=== PATIENT | female | born 1980 | race African-American/Black ===

== ENCOUNTER 2016-10-08 12:40 | Outpatient (CLI) ==
[2016-10-08 13:03] LABS: BASOPHILS % (AUTO) 0.4 % (0.0-3.0); EOSINOPHILS # (AUTO) 0.1 K/ul (0.0-0.7); EOSINOPHILS % (AUTO) 1.6 % (0.0-7.0); HEMATOCRIT 35.4 % (37.0-47.0); HEMOGLOBIN 11.5 g/dl (12.0-16.0); IMMATURE GRANULOCYTE % (AUTO) 0.4 % (0.0-5.0); LYMPHOCYTES # (AUTO) 2.4 K/uL (0.60-3.4); LYMPHOCYTES % (AUTO) 32.7 (10.0-50.0); MEAN CORPUSCULAR HEMOGLOBIN 27.1 pg (27.0-31.0); MEAN CORPUSCULAR HGB CONC 32.5 (31.8-35.4); MEAN CORPUSCULAR VOLUME 83.5 fl (81.0-99.0); MONOCYTES # (AUTO) 0.6 K/uL (0.4-2.0); MONOCYTES % (AUTO) 7.6 (0-10); NEUTROPHILS # (AUTO) 4.2 K/ul (2.0-6.9); NEUTROPHILS % (AUTO) 57.3; PLATELET COUNT 238 10^3/uL (140-440); RED BLOOD COUNT 4.24 10^6/ul (4.20-5.40); WHITE BLOOD COUNT 7.33 K/ul (4.6-10.2)
[2016-10-08 13:54] LABS: ALBUMIN 3.5 g/dL (3.4-5.0); ALBUMIN/GLOBULIN RATIO 0.83; ANION GAP 12.9; BILIRUBIN,DIRECT 0.1 mg/dL (0.00-0.30); BILIRUBIN,TOTAL 0.17 mg/dL (0.00-1.20); BUN/CREATININE RATIO 12.5; CALCIUM 9.3 mg/dL (8.2-10.2); CREATININE 0.88 mg/dL (0.60-1.30); POTASSIUM 3.9 mmol/L (3.5-5.10); TOTAL PROTEIN 7.7 g/dL (6.4-8.2)
== END 2016-10-08 12:41 | disposition home or self-care (01) ==
LOC: LAB 12:40
PROVIDERS: ATTEND Psychiatry & Neurology Neurology
DX: Z13.1 Encounter for screening for diabetes mellitus (principal); E89.0 Postprocedural hypothyroidism; F71 Moderate intellectual disabilities; G40.909 Epilepsy, unspecified, not intractable, without status epilepticus; Z79.899 Other long term (current) drug therapy
CPT/HCPCS: 36415; 80053; 80156; 82248; 83036; 84443; 85025

== ENCOUNTER 2016-12-31 08:53 | Outpatient (CLI) ==
--- NOTE | 2016-12-31 09:56 | MAMMO ---
EXAM: Digital bilateral diagnostic mammogram HISTORY: With a new concern left breast nodule COMPARISON: None FINDINGS: MLO and CC views of the breast were performed digitally and demonstrate scattered fibrog landular breast density (25 - 50%). The parenchyma is nodular bilaterally. Asymmetric nodularity is noted in the central of the left breast on CC view only. Spot compression images were performed wi th this area pressing out and no residual nodule identified. The right breast is unremarkable. IMPRESSION: Asymmetric density in the left breast on MLO presses out consistent with summation hank fact. RECOMMENDATION: Return to annual screening mammogram BIRADS category II: Benign findings
[2016-12-31 10:49] LABS: POTASSIUM 3.5 mmol/L (3.5-5.10)
[2016-12-31 10:50] LABS: ALBUMIN 3.6 g/dL (3.4-5.0); ALBUMIN/GLOBULIN RATIO 0.86; ANION GAP 12.5; BILIRUBIN,TOTAL 0.19 mg/dL (0.00-1.20); BUN/CREATININE RATIO 9.78; CHOL/HDL RATIO 3.6 (4.5-5.5); CREATININE 0.92 mg/dL (0.60-1.30); TOTAL PROTEIN 7.8 g/dL (6.4-8.2)
== END 2016-12-31 08:54 | disposition home or self-care (01) ==
LOC: RAD 08:53
PROVIDERS: ATTEND Registered Nurse
DX: N64.59 Other signs and symptoms in breast (principal); E11.9 Type 2 diabetes mellitus without complications; E89.0 Postprocedural hypothyroidism
CPT/HCPCS: 36415; 80053; 80061; 82043; 82306; 83036; 84443

== ENCOUNTER 2017-04-27 09:33 | Outpatient (CLI) ==
[2017-04-27 10:00] LABS: BASOPHILS % (AUTO) 0.3 % (0.0-3.0); EOSINOPHILS # (AUTO) 0.1 K/ul (0.0-0.7); EOSINOPHILS % (AUTO) 1.6 % (0.0-7.0); HEMATOCRIT 35.3 % (37.0-47.0); HEMOGLOBIN 11.8 g/dl (12.0-16.0); IMMATURE GRANULOCYTE % (AUTO) 0.3 % (0.0-5.0); LYMPHOCYTES # (AUTO) 2.6 K/uL (0.60-3.4); MEAN CORPUSCULAR HEMOGLOBIN 27.1 pg (27.0-31.0); MEAN CORPUSCULAR HGB CONC 33.4 (31.8-35.4); MEAN CORPUSCULAR VOLUME 81.1 fl (81.0-99.0); MONOCYTES # (AUTO) 0.4 K/uL (0.4-2.0); MONOCYTES % (AUTO) 5.7 (0-10); NEUTROPHILS # (AUTO) 3.6 K/ul (2.0-6.9); NEUTROPHILS % (AUTO) 53.1; PLATELET COUNT 223 10^3/uL (140-440); RED BLOOD COUNT 4.35 10^6/ul (4.20-5.40); WHITE BLOOD COUNT 6.69 K/ul (4.6-10.2)
[2017-04-27 10:45] LABS: ALANINE AMINOTRANSFERASE 10 U/L (12-78); ALBUMIN 3.4 g/dL (3.4-5.0); ALBUMIN/GLOBULIN RATIO 0.92; ALKALINE PHOSPHATASE 90 U/L (42-98); ASPARTATE AMINO TRANSFERASE 9 U/L (15-37); BILIRUBIN,DIRECT < 0.10 mg/dL (0.00-0.30); BILIRUBIN,TOTAL 0.16 mg/dL (0.00-1.20); BLOOD UREA NITROGEN 7 mg/dL (7-18); BUN/CREATININE RATIO 8.23; CALCIUM 9.3 mg/dL (8.2-10.2); CARBON DIOXIDE 25 mmol/L (21-32); CHLORIDE 104 mmol/L (98-107); CHOL/HDL RATIO 3.3 (4.5-5.5); CHOLESTEROL 196 mg/dL (0-200); CREATININE 0.85 mg/dL (0.60-1.30); GLUCOSE 91 mg/dL (70-110); HDL CHOLESTEROL 59 mg/dL (35-80); SODIUM 139 mmol/L (136-145); TOTAL PROTEIN 7.1 g/dL (6.4-8.2); TRIGLYCERIDES 131 mg/dL (30-150); VLDL CHOLESTEROL 26 mg/dL (2-30)
== END 2017-04-27 09:34 | disposition home or self-care (01) ==
LOC: LAB 09:33
PROVIDERS: ATTEND Psychiatry & Neurology Neurology
DX: E03.9 Hypothyroidism, unspecified (principal); E11.65 Type 2 diabetes mellitus with hyperglycemia; J30.1 Allergic rhinitis due to pollen; G40.909 Epilepsy, unspecified, not intractable, without status epilepticus
CPT/HCPCS: 36415; 80053; 80061; 82248; 83036; 84443; 85025

== ENCOUNTER 2017-06-18 10:42 | Outpatient (CLI) | END 2017-06-18 10:43 | disposition home or self-care (01) | LOC: LAB 10:42 | PROVIDERS: ATTEND Internal Medicine Endocrinology, Diabetes & Metabolism | DX: E89.0 Postprocedural hypothyroidism (principal); E55.9 Vitamin D deficiency, unspecified | CPT/HCPCS: 36415; 82306; 84443 ==

== ENCOUNTER 2017-11-10 15:31 | Outpatient (CLI) | END 2017-11-10 15:32 | disposition home or self-care (01) | LOC: LAB 15:31 | PROVIDERS: ATTEND Psychiatry & Neurology Neurology | DX: G40.909 Epilepsy, unspecified, not intractable, without status epilepticus (principal) | CPT/HCPCS: 36415; 80076; 80156; 85025 ==

== ENCOUNTER 2017-12-21 10:49 | Outpatient (CLI) | END 2017-12-21 10:50 | disposition home or self-care (01) | LOC: LAB 10:49 | PROVIDERS: ATTEND Internal Medicine Endocrinology, Diabetes & Metabolism | DX: E11.9 Type 2 diabetes mellitus without complications (principal); E89.0 Postprocedural hypothyroidism; Z86.39 Personal history of other endocrine, nutritional and metabolic disease | CPT/HCPCS: 36415; 80053; 82306; 83036; 84443 ==

== ENCOUNTER 2019-02-03 11:16 | Outpatient (CLI) | END 2019-02-03 11:17 | disposition home or self-care (01) | LOC: LAB 11:16 | DX: E03.9 Hypothyroidism, unspecified (principal); E11.65 Type 2 diabetes mellitus with hyperglycemia; F79 Unspecified intellectual disabilities | CPT/HCPCS: 36415; 80053; 80061; 83036; 84443; 85025 ==